=== PATIENT | female | born 1985 | race American Indian/Alaskan Native ===

== ENCOUNTER 2018-11-09 15:01 | Emergency (ER) | payer OTHER ==
[2018-11-09 15:07] VITALS: BMI 27.9
[2018-11-09] MEDS ORDERED: Albuterol 0.083% Inhal Sol (2.5 mg/3 mL) UD INH STA (15:50)
[2018-11-09] MEDS ORDERED: Albuterol 0.083% Inhal Sol (2.5 mg/3 mL) UD ONE (16:16)
--- NOTE | 2018-11-09 16:58 | C.PDOC ---
History Of Present Illness 32 y/o female presents to the ED with 3 week history of cough and congestion. Cough is productive of clear phlegm. No documented fever but patient reports having chills. Denies hx of tobacco use. Patient otherwise denies any nausea, vomiting, or diarrhea. No sick contacts. Patient additionally complains of chest wall pain with coughing. Denies any SOB. Denies recent prolonged immobilization or long distance travel. Time Seen by Provider: 11/09/18 15:30 Chief Complaint (Nursing): Flu-like Symptoms History Per: Patient History/Exam Limitations: no limitations Onset/Duration Of Symptoms: Days Current Symptoms Are (Timing): Still Present Sick Contacts (Context): None Associated Symptoms: Cough, Nasal Congestion Past Medical History Reviewed: Historical Data, Nursing Documentation, Vital Signs Vital Signs: Last Vital Signs Temp 99.5 F 11/09/18 15:07 Pulse 102 H 11/09/18 15:07 Resp 97 H 11/09/18 15:07 BP 136/89 11/09/18 15:07 Pulse Ox 96 11/09/18 15:07 - Medical History PMH: No Chronic Diseases Family History: States: Unknown Family Hx - Social History Hx Tobacco Use: No Hx Alcohol Use: No Hx Substance Use: No - Immunization History Hx Tetanus Toxoid Vaccination: No Hx Influenza Vaccination: No Hx Pneumococcal Vaccination: No Review Of Systems Except As Marked, All Systems Reviewed And Found Negative. Constitutional: Positive for: Chills. Negative for: Fever ENT: Positive for: Nose Congestion Cardiovascular: Positive for: Chest Pain (when coughing) Respiratory: Positive for: Cough. Negative for: Shortness of Breath Gastrointestinal: Negative for: Nausea, Vomiting, Diarrhea Physical Exam - Physical Exam Appears: Non-toxic, No Acute Distress Skin: Normal Color, Warm, Dry Head: Atraumatic, Normacephalic Eye(s): bilateral: Normal Inspection, PERRL, EOMI Ear(s): Bilateral: Normal Oral Mucosa: Moist Throat: Normal, No Erythema, No Exudate Neck: Normal ROM Chest: Symmetrical, Tenderness (reproducible chest wall tenderness) Cardiovascular: Rhythm Regular, No Murmur Respiratory: Normal Breath Sounds, No Rales, No Rhonchi, No Wheezing Gastrointestinal/Abdominal: Soft, No Tenderness, No Distention Extremity: Bilateral: Atraumatic, No Pedal Edema, Normal Color And Temperature Pulses: Left Radial: Normal, Right Radial: Normal Neurological/Psych: Oriented x3, Normal Speech ED Course And Treatment O2 Sat by Pulse Oximetry: 96 (RA) Pulse Ox Interpretation: Normal Medical Decision Making Medical Decision Making: Impression: Bronchitis Plan: --Albuterol neb --Motrin 600 mg PO --Zithromax 500 mg PO --Reassess Disposition - Disposition Disposition: HOME/ ROUTINE Disposition Time: 17:16 Condition: STABLE Additional Instructions: follow up with your doctor within 2 days call to make an appointment take medications as prescribed return to ER if symptoms worsens or progress Prescriptions: Albuterol HFA [Ventolin HFA 90 mcg/actuation (8 g)] 2 puff IH [id number] #1 puff Azithromycin [Zithromax] 250 mg PO DAILY #4 tab Benzonatate [Tessalon Perles] 100 mg PO BID PRN #14 tab PRN Reason: Cough Naproxen [Naprosyn] 500 mg PO BID PRN #16 tab PRN Reason: Pain, Moderate (4-7) Forms: [facility] (Niuean), General Discharge Instructions, Work Excuse - Clinical Impression Clinical Impression: Bronchitis - Scribe Statement The provider has reviewed the documentation as recorded by the Mateo Tadeo Provider Attestation: All medical record entries made by the Mattieibdeysi were at my direction and personally dictated by me. I have reviewed the chart and agree that the record accurately reflects my personal performance of the history, physical exam, medical decision making, and the department course for this patient. I have also personally directed, reviewed, and agree with the discharge instructions and disposition.
[2018-11-09 17:45] VITALS: BP 140/85; PULSE 89; RESP 18; TEMP 98.4; O2SAT 100
== END 2018-11-09 17:45 | disposition home or self-care (01) ==
LOC: C.ER 15:01
DX: J40 Bronchitis, not specified as acute or chronic (principal)

== ENCOUNTER 2019-01-12 15:09 | Emergency (ER) | payer OTHER ==
[2019-01-12 15:10] VITALS: BMI 27.9
[2019-01-12] MEDS ORDERED: Amoxicillin-Clav 875-125 mg Tab PO STA (16:00)
--- NOTE | 2019-01-12 16:05 | C.PDOC ---
History Of Present Illness 33 y/o female pt with hx of asthma presents to the ER c/o fever for the past week. Associated sx includes right ear pain and productive cough. Pt notes that once in a while pt has SOB due to her asthma. Pt denies chest pain, nausea, vomiting and diarrhea. Time Seen by Provider: 01/12/19 15:37 Chief Complaint (Nursing): Flu-like Symptoms History Per: Patient History/Exam Limitations: no limitations Onset/Duration Of Symptoms: Days (weeks) Current Symptoms Are (Timing): Still Present Past Medical History Reviewed: Historical Data, Nursing Documentation, Vital Signs Vital Signs: Last Vital Signs Temp 100.1 F H 01/12/19 15:26 Pulse 108 H 01/12/19 15:26 Resp 18 01/12/19 15:26 BP 115/75 01/12/19 15:26 Pulse Ox 98 01/12/19 15:26 - Medical History PMH: Asthma Family History: States: Unknown Family Hx - Social History Hx Tobacco Use: No Hx Alcohol Use: Yes Hx Substance Use: No - Immunization History Hx Tetanus Toxoid Vaccination: No Hx Influenza Vaccination: No Hx Pneumococcal Vaccination: No Review Of Systems Except As Marked, All Systems Reviewed And Found Negative. Constitutional: Positive for: Fever ENT: Positive for: Ear Pain (right ) Cardiovascular: Negative for: Chest Pain Respiratory: Positive for: Cough (productive ), Shortness of Breath (due to her asthma ) Gastrointestinal: Negative for: Nausea, Vomiting, Diarrhea Physical Exam - Physical Exam Appears: Non-toxic, No Acute Distress Skin: Warm, Dry, No Rash Head: Normacephalic Eye(s): bilateral: Normal Inspection Ear(s): Bilateral: Other (perforated TM, pus discharge ) Nose: Normal Oral Mucosa: Moist Throat: Normal, No Erythema, Other (uvula midline ) Neck: Normal ROM, Supple Chest: Symmetrical Cardiovascular: Rhythm Regular Respiratory: Normal Breath Sounds Gastrointestinal/Abdominal: Soft, No Tenderness Back: No CVA Tenderness Extremity: Normal ROM (x4) Neurological/Psych: Oriented x3, Normal Speech, Normal Cognition, Normal Motor, Normal Sensation ED Course And Treatment O2 Sat by Pulse Oximetry: 98 (RA) Pulse Ox Interpretation: Normal Medical Decision Making Medical Decision Making: Impression: right otits media and URI Plans: -- augmented -- ventolin -- motrin Disposition - Disposition Referrals: [facility] [Outside] [facility] at [facility] [Outside] [facility] [place] [Outside] Disposition: HOME/ ROUTINE Disposition Time: 16:23 Condition: GOOD Prescriptions: Albuterol HFA [Ventolin HFA 90 mcg/actuation (8 g)] 200 puff IH Q6 #1 puff Amoxicillin/Clavulanate [Augmentin 875 MG-125 MG] 1 tab PO BID #14 tab Ibuprofen [Motrin] 600 mg PO Q6 #20 tab Instructions: Ear Infections (Otitis Media) Forms: [employer] (Nicaraguan), Work Excuse - Clinical Impression Clinical Impression: Otitis media - Scribe Statement The provider has reviewed the documentation as recorded by the Scribe Corona Do Provider Attestation: All medical record entries made by the Scribe were at my direction and personally dictated by me. I have reviewed the chart and agree that the record accurately reflects my personal performance of the history, physical exam, medical decision making, and the department course for this patient. I have also personally directed, reviewed, and agree with the discharge instructions and disposition.
[2019-01-12] MEDS ORDERED: Amoxicillin-Clav 875-125 mg Tab PO ONE (16:17)
[2019-01-12 16:24] VITALS: BP 107/82; PULSE 96; RESP 20; TEMP 98.8
[2019-01-13 15:11] VITALS: O2SAT 98
== END 2019-01-12 16:23 | disposition home or self-care (01) ==
LOC: C.ER 15:09
DX: H66.90 Otitis media, unspecified, unspecified ear (principal)

== ENCOUNTER 2019-01-21 23:20 | Emergency (ER) | payer OTHER ==
[2019-01-21 23:21] VITALS: BMI 27.9
[2019-01-21] MEDS ORDERED: Albuterol-Ipratrop 3 mg / 0.5 (3 ml) UD ONE (23:33)
[2019-01-21 23:41] VITALS: BP 127/88; PULSE 124; TEMP 98.6; O2SAT 99
--- NOTE | 2019-01-22 01:03 | C.PDOC ---
History Of Present Illness 33 year old female with PMHx of asthma presents to the ED c/o productive cough with white sputum that worsens at night and is unable to sleep. Patient has been seen in the ED three time since October for the same symptoms. Patient states she completed 2 courses of antibiotics, she has been using her inhaler more than usual. Patient also c/o abdominal pain after coughing. Patient denies fever, chills, headache, rash, recent travel, sick contacts. Time Seen by Provider: 01/21/19 23:52 Chief Complaint (Nursing): Cough, Cold, Congestion History Per: Patient History/Exam Limitations: no limitations Onset/Duration Of Symptoms: Days Current Symptoms Are (Timing): Still Present Location Of Pain: Throat Sick Contacts (Context): None Associated Symptoms: Cough, Sputum. denies: Fever, Sinus Drainage, Nasal Congestion, Vomiting Ear Symptoms: Bilateral: None Recent travel outside of the [place]: No Additional History Per: Patient Past Medical History Reviewed: Historical Data, Nursing Documentation, Vital Signs Vital Signs: Last Vital Signs Temp 98.6 F 01/21/19 23:35 Pulse 124 H 01/21/19 23:35 Resp 20 01/21/19 23:35 BP 127/88 01/21/19 23:35 Pulse Ox 99 01/21/19 23:35 - Medical History PMH: Asthma Surgical History: No Surg Hx Family History: States: Unknown Family Hx - Social History Hx Tobacco Use: No Hx Alcohol Use: Yes Hx Substance Use: No - Immunization History Hx Tetanus Toxoid Vaccination: No Hx Influenza Vaccination: No Hx Pneumococcal Vaccination: No Review Of Systems Constitutional: Negative for: Fever, Chills ENT: Negative for: Nose Discharge, Nose Congestion Respiratory: Positive for: Cough, Sputum. Negative for: Shortness of Breath, Wheezing Gastrointestinal: Positive for: Abdominal Pain. Negative for: Vomiting Skin: Negative for: Rash Neurological: Negative for: Weakness, Numbness, Headache, Dizziness Physical Exam - Physical Exam Appears: Non-toxic, No Acute Distress Skin: Normal Color, Warm, Dry Head: Atraumatic, Normacephalic Eye(s): bilateral: Normal Inspection Nose: No Discharge Oral Mucosa: Moist Throat: Normal, No Erythema, No Exudate Neck: Normal ROM, Supple Chest: Symmetrical Cardiovascular: Rhythm Regular Respiratory: Normal Breath Sounds, No Rales, No Rhonchi, No Wheezing Gastrointestinal/Abdominal: Soft, No Tenderness, No Guarding, No Rebound Extremity: Normal ROM, No Tenderness, No Swelling Neurological/Psych: Oriented x3, Normal Speech, Normal Cognition Gait: Steady ED Course And Treatment O2 Sat by Pulse Oximetry: 99 (ON RA) Pulse Ox Interpretation: Normal Disposition Counseled Patient/Family Regarding: Diagnosis, Need For Followup, Rx Given - Disposition Referrals: [facility] [Outside] [facility] [Outside] Disposition: HOME/ ROUTINE Disposition Time: 00:59 Condition: GOOD Additional Instructions: Finish any antibiotics that you are taking. Try Benadryl at bedtime- makes you drowsy. Wear mask at work to avoid dust. Wash and dry all bedding, curtains, clean any carpets. Use inhaler 2 puffs every 4-6 hours. Use saline in nebulizer machine before bedtime. Take steroid medicine for a few days. Follow up with perimary care doctor in a few days- call [facility] or medical clinic. Pepcid for abdominal pain . 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 - Scribe Statement The provider has reviewed the documentation as recorded by the Scribe Travon Monzon All medical record entries made by the Scribe were at my direction and personally dictated by me. I have reviewed the chart and agree that the record accurately reflects my personal performance of the history, physical exam, medical decision making, and the department course for this patient. I have also personally directed, reviewed, and agree with the discharge instructions and disposition.
[2019-01-22 01:36] VITALS: RESP 16
== END 2019-01-22 01:34 | disposition home or self-care (01) ==
LOC: C.ER 23:20
DX: J40 Bronchitis, not specified as acute or chronic (principal)